=== PATIENT | male | born 1950 | race Caucasian/White ===

== ENCOUNTER 2018-11-10 10:27 | Day surgery (SDC) | payer MEDICARE, OTHER ==
[2018-11-10] VITALS (9 sets, daily range): BP systolic 113–143; BP diastolic 49–97
[~2018-11-10] VITALS: Ht 172.7 cm; Wt 101.7 kg
[2018-11-10 11:28] LABS: BASOPHILS # (AUTO) 0.1 X10'3 (0-0.2); BASOPHILS % (AUTO) 1.1 % (0-1); EOSINOPHILS # (AUTO) 0.1 X10'3 (0-0.9); EOSINOPHILS % (AUTO) 1.2 % (0-6); HEMATOCRIT 46.1 % (42.0-52.0); HEMOGLOBIN 15.4 g/dl (14.0-17.9); LYMPHOCYTES # (AUTO) 2.2 X10'3 (1.1-4.8); LYMPHOCYTES % (AUTO) 33.7 % (21-51); MEAN CORPUSCULAR HEMOGLOBIN 29.5 PG (27.0-31.0); MEAN CORPUSCULAR HGB CONC 33.5 g/dL (33.0-36.5); MEAN PLATELET VOLUME 9.1 FL (7.4-10.4); MONOCYTES # (AUTO) 0.6 X10'3 (0-0.9); MONOCYTES % (AUTO) 9.7 % (2-12); NEUTROPHILS # (AUTO) 3.5 X10'3 (1.8-7.7); NEUTROPHILS % (AUTO) 54.3 % (42-75); PLATELET COUNT 194 X10'3 (140-440); RED BLOOD COUNT 5.24 X10'6 (4.70-6.10); RED CELL DISTRIBUTION WIDTH 13.7 % (11.5-14.5); WHITE BLOOD COUNT 6.4 X10'3 (4.5-11.0)
[2018-11-10] MEDS ORDERED: ASPI81TA52 PO (11:28)
[2018-11-10] MEDS ORDERED: [UNRECOGNIZED DRUG - OTHER] PO (11:28)
[2018-11-10] MEDS ORDERED: GLUC-87 PO (11:28)
[2018-11-10] MEDS ORDERED: TELM1TAB6 PO (11:28)
[2018-11-10] MEDS ORDERED: FENO134C PO (11:28)
[2018-11-10] MEDS ORDERED: EZET10TA13 PO (11:28)
[2018-11-10] MEDS ORDERED: OMEG1CAP PO (11:28)
[2018-11-10 11:37] LABS: ALBUMIN 3.9 G/DL (3.4-5.0); ANION GAP 9 (8-16); BLOOD UREA NITROGEN 19 MG/DL (7-18); BUN/CREATININE RATIO 17.4 (5.4-32.0); CALCIUM 9.4 MG/DL (8.5-10.1); CHLORIDE 105 MMOL/L (99-107); CREATININE 1.09 MG/DL (0.60-1.10); GLUCOSE 132 MG/DL (70-104); MAGNESIUM 1.8 MG/DL (1.5-2.4); POTASSIUM 3.9 MMOL/L (3.5-5.1); PROTHROMBIN TIME 10.2 SECONDS (9.0-12.0); SODIUM 140 MMOL/L (135-145); TOTAL CARBON DIOXIDE 25.8 MMOL/L (24-32); eGFR 67 ML/MIN
[2018-11-10] MEDS ORDERED: diphenhydrAMINE 25mg capsule PO PRN (12:05)
[2018-11-10] MEDS ORDERED: sod bicarbonate 150mEq in D5W 1,150 ML IV ONE (12:05)
[2018-11-10] MEDS ORDERED: iohexol 350MG/ML 100ml bottle IV ONE (12:44)
[2018-11-10] MEDS ORDERED: iohexol 350 MG/ML 50ML vial IV ONE (12:44)
[2018-11-10] MEDS ORDERED: LIDOcaine 1% (10mg/ml)w/preservative injection 20ml MDV ONE (12:44)
[2018-11-10] MEDS ORDERED: midazolam 2 mg/2 ml injection ONE ×2 (12:44→13:25)
[2018-11-10] MEDS ORDERED: fentaNYL/PF 50MCG/1 ML 2ML syringe ONE (12:44)
== END 2018-11-10 16:57 | disposition home or self-care (01) ==
LOC: SSTAY O 10:27
PROVIDERS: ATTEND Internal Medicine Cardiovascular Disease
DX: I25.10 Atherosclerotic heart disease of native coronary artery without angina pectoris (principal); I10 Essential (primary) hypertension; E78.00 Pure hypercholesterolemia, unspecified; E11.9 Type 2 diabetes mellitus without complications; Z98.890 Other specified postprocedural states; Z79.84 Long term (current) use of oral hypoglycemic drugs
CPT/HCPCS: 36415; 80048; 83735; 85025; 85610; 93005; 93458; 99152; 99153; A6257; J1644; J2001; J2250; J3010; Q0163; Q9967; A4620; C1760; C1769; C1894

== ENCOUNTER 2025-08-17 13:29 | Outpatient (CLI) | payer MEDICARE, OTHER ==
[~2025-08-17 13:29] MED LIST: ASPI81TA52 PO; EZET10TA7 PO; FENO134C21 PO; GLUC-87 PO; OMEG1CAP61 PO; TELM1TAB6 PO; [UNRECOGNIZED DRUG - OTHER] PO
--- NOTE | 2025-08-18 03:17 | CONSULTATION ---
DATE OF CONSULTATION: 08/17/2025 DICTATING PHYSICIAN: Ellie Sharma M.S., [facility]-PAINTER HAND MODIFIED BARIUM SWALLOW STUDY REPORT REFERRING PHYSICIAN: Chris Dozier MD HISTORY OF PRESENT ILLNESS: The patient is a 74-year-old male and consents to this evaluation. History was obtained from the patient and medical records. The patient reports symptoms of dysphagia, including feeling as if items stick on the right side of his throat when he is eating and drinking. He reports that it feels as if there is a small hole that the food goes through and that it occurs when he is taking his medications or drinking his Coke. He reports that this occurs 3-4 times a week. The patient has not been seen by an ENT in the past as he does not desire to have a scope down his throat. He reports no significant medical history and he reports that his swallowing difficulty has been occurring for the past 6-12 months. CURRENT DIET: In terms of caffeine, the patient has 1 cup of coffee and 1 sugar-free Coke on a daily basis. He does not utilize tobacco products, having quit 12-15 years ago. He does not consume alcohol. He has chocolate twice monthly. A typical breakfast consists of eggs, linguisa, and rice. He occasionally snacks in the morning and it is very variable in what he might snack on. A typical lunch is half a sandwich, chips, and his sugar-free Coke. He snacks in the afternoon on items such as fruit. Dinner is eaten at 6:30 p.m. and may be something such as fish and vegetables or stew over rice. He will have dessert after he finishes his dinner dishes, which may be sugar-free ice cream or pudding and goes to bed at 9:00 p.m. MEDICATIONS: Aspirin 81 mg p.o. daily, cinnamon extract with D3 at 2 capsules b.i.d., ezetimibe 10 mg 1 tablet once daily orally, hydrochlorothiazide/telmisartan 12.5 mg/40 mg 1 tablet once daily orally, metformin 500 mg 2 tablets b.i.d., omega-3 fish oil 1400 mg 1 capsule b.i.d., rosuvastatin 40 mg 1 tablet once daily orally, vitamin B12 at 1000 mcg 1 tablet b.i.d. PARAMETERS: The patient is seated in a lateral 90-degree view and administered the usual protocol of thin and nectar thick liquids, puree and solid consistencies, as well as self-regulated boluses of thin liquids from a cup. RESULTS: In the oral stage of the swallow, lingual strength is within functional limits and oral residue is within functional limits. In the pharyngeal stage of the swallow, tongue base retraction is mildly reduced. Swallow initiation is within functional limits. Anterior movement of the posterior pharyngeal wall is observed. Elevation of the hyothyroid complex is accomplished with full range of motion. PES opening is within functional limits. There is a mild pharyngeal residue noted at the level of the vallecula and PES opening secondary to mildly reduced tongue base retraction. At no time is the patient noted to penetrate or aspirate on any of the bolus sizes or consistencies. ANTERIOR, POSTERIOR VIEW: In the AP plane, the bolus split symmetrically between the piriform sinuses and no proximal movement was noted. IMPRESSION: The patient demonstrates with what appears to be a mild oropharyngeal stage swallowing disorder characterized by mildly reduced tongue base retraction that results in a mild pharyngeal residue at the level of the vallecula and PES opening. DIAGNOSES: R13.12, dysphagia, oropharyngeal phase, R63.3, feeding difficulties. PATIENT EDUCATION: Immediately following modified barium swallow study, the patient was able to view the results. The normal anatomy of the swallowing mechanism was revealed. The patient was able to see how the current status of the swallowing mechanism decreases his ability to swallow normally. He was educated on the effortful swallow exercise and was recommended to complete 2 sets of 10 four times weekly. He was also educated on a potential for swallowing therapy and declined to participate at this time. RECOMMENDATIONS: 1. It is recommended that the patient complete the effortful swallow exercise 4 times weekly. LONG-TERM GOALS: 1. The patient will maintain adequate hydration/nutrition with optimum safety and efficiency of swallow function on p.o. intake without overt signs and symptoms of aspiration for the highest possible diet level. FUNCTIONAL ORAL INTAKE: The FOIS was administered to establish and document a change in the functional eating activities of this patient over time. This is a 7-point scale with 1 indicating no oral intake and totally tube dependent and 7 indicating total oral intake with no restrictions. This patient received a 7, which indicates total oral intake with no restrictions. G-CODE: [id number]. Thank you very much for asking me to participate in the care of this kind patient. Should you have any questions regarding this evaluation or recommendations, please do not hesitate to contact me at [phone]. During this examination, 2:35 minutes of fluoroscopy time and 12.74 CAK mGy were utilized. Ellie Sharma M.S., [facility]-PAINTER HAND TID: [id number] RECEIPT: [id number] ANABELLE/EZEQUIEL REDMOND
== END 2025-08-17 23:59 | disposition home or self-care (01) ==
LOC: RAD 13:29
DX: R13.12 Dysphagia, oropharyngeal phase (principal); R63.30 Feeding difficulties, unspecified
CPT/HCPCS: 74230